=== PATIENT | female | born 1955 | race Caucasian/White ===

== ENCOUNTER 2022-12-22 09:25 | Day surgery (SDC) | payer MEDICARE, OTHER, SELFPAY ==
--- NOTE | 2022-12-21 10:20 | HO.ANESPROP2 ---
Documented by User: Frannie Painter NP 12/21/22 10:20 HPI - Anesthesia Eval Consult details Narrative: 67yo F for Colonoscopy FORMERLY [facility], [facility] Past Medical History Medical History Osteoarthritis Surgical History Surgical History History of back surgery Hx of colonoscopy Social History Social History Patient Tobacco Use Status: Never used Tobacco Use of substances other than those prescribed or required for medical reasons: No Are you DNR?: No Advance Directives: No Advance Directives Information Provided: Yes Meds Allergies Allergy/AdvReac Type Severity Reaction Status Date / Time No Known Allergies Allergy Verified 12/22/22 10:23 Home Medications Medication Instructions Recorded Confirmed Last Taken Type Osteo Bi-Flex PO 12/21/22 Unknown History acetaminophen 325 mg tablet 650 mg PO Q4H PRN Pain 12/21/22 12/21/22 Unknown History (Tylenol) celecoxib 200 mg capsule 200 mg PO DAILY PRN pain 12/21/22 12/21/22 12/14/22 History glucosamin 375 mg-chond 300 1 cap PO DAILY 12/21/22 12/21/22 Unknown History mg-collagen 50 mg-hyaluronic acid 2 mg cap ibuprofen 200 mg tablet (Motrin IB) 200 mg PO Q8H PRN Pain 12/21/22 12/21/22 12/14/22 History magnesium 300 tab PO DAILY 12/21/22 12/21/22 Unknown History Exam Exam Date and Time: December 21, 2022 1020 Assessment and Plan Assessment Anesthesia Assessment: Chart Reviewed Documented by User: Radha Huff MD 12/22/22 11:13 FOR[facility]LY [facility], [facility] Past Medical History Medical History Osteoarthritis Family History Family history of problems with anesthesia: No Surgical History Surgical History History of back surgery Hx of colonoscopy History of Problems with Anesthesia: No Social History Social History Patient Tobacco Use Status: Never used Tobacco Use of substances other than those prescribed or required for medical reasons: No Are you DNR?: No Advance Directives: No Advance Directives Information Provided: Yes Meds Allergies Allergy/AdvReac Type Severity Reaction Status Date / Time No Known Allergies Allergy Verified 12/22/22 10:23 Home Medications Medication Instructions Recorded Confirmed Last Taken Type Osteo Bi-Flex PO 12/21/22 Unknown History acetaminophen 325 mg tablet 650 mg PO Q4H PRN Pain 12/21/22 12/21/22 Unknown History (Tylenol) celecoxib 200 mg capsule 200 mg PO DAILY PRN pain 12/21/22 12/21/22 12/14/22 History glucosamin 375 mg-chond 300 1 cap PO DAILY 12/21/22 12/21/22 Unknown History mg-collagen 50 mg-hyaluronic acid 2 mg cap ibuprofen 200 mg tablet (Motrin IB) 200 mg PO Q8H PRN Pain 12/21/22 12/21/22 12/14/22 History magnesium 300 tab PO DAILY 12/21/22 12/21/22 Unknown History Exam Airway Mallampati Class: II TM Dist: >3cm Neck ROM: Full Heart: rrr Lungs: cta Assessment and Plan Assessment Anesthesia Assessment: Anesthesia Plan Discussed Final Anesthetic Review Family History of Problems with Anesthesia: No History of Problems with Anesthesia: No NPO: Yes ASA Class: II Final Preanesthetic Review: No Changes in Pt Med Stat, Meds/Allgs Chart Reviewed, Consent Obtained/Reviewed and Anes Risks/Benef Reviewed Patient Risk: Low Procedure Risk: Low Anesthetic Plan Anesthetic Plan: MAC: Disposition: Standard PACU
[2022-12-22 10:23] VITALS: BMI 34.9
[2022-12-22 10:42] VITALS: BP 124/70; PULSE 70; RESP 15; TEMP 36.7; O2SAT 97
[2022-12-22] MEDS: Lactated Ringers 1,000 ML 100 ML IVCONT (10:49)
--- NOTE | 2022-12-22 11:14 | P.HPSUR_ITS ---
Pre-Procedural Eval Section A Date of Service: 12/22/22 Section B Chief Complaint: Encounter for screening for malignant neoplasm of Details of Present Illness: see H&P no changes Relevant Family History (Specify if Yes): Yes Relevant Social History: None Present Medications: see Short Stay Collaborative assessment Medical History: No relevant PMH History of Previous Operations: No relevant previous surgery Allergies: Allergies Allergy/AdvReac Type Severity Reaction Status Date / Time No Known Allergies Allergy Verified 12/22/22 10:23 Review of Systems Sugical H&P ROS: Negative: Constitution, Cardiovascular, Respiratory, Neurol ogical, Psychiatric, Hem-Onc, Allergic/Immunologic, Gastrointestinal, Genitourinary, Musculoskeletal, Integumentary, Endocrine and Eyes/Ears/Nose/Throat Exam Surgical H&P Exam: Normal: HEENT, Normal: Heart, Normal: Lungs, Normal: Extremities, Normal: Abdomen, Normal: Skin and Normal: Neurological Plan Diagnosis/Plan: Unchanged I have reviewed the history and physical and performed a pertinent physical examination on my patient. No changes have occurred unless specified. Time Spent With Patient Time: Total time managing care of this patient today ____ minutes.
--- NOTE | 2022-12-22 11:43 | PM.OP ---
Brief Operative Note Date of Service: 12/22/22 Pre-op diagnosis: screening Post-op diagnosis: same Surgeon: Kike Russell Anesthesia: MAC Was an Fisher Line used for this Procedure?: No Estimated blood loss (mL): 2 Pathology: other Condition: stable Disposition: PACU
[2022-12-22 11:50] VITALS: BP 90/51; PULSE 71; RESP 17; TEMP 36.4; O2SAT 97
--- NOTE | 2022-12-22 11:59 | PC.NURSE ---
as per md. Zazueta finish iv fluids
[2022-12-22 12:05] VITALS: BP 110/77; PULSE 69; RESP 17; TEMP 36.3; O2SAT 100
--- NOTE | 2022-12-22 12:54 | OP_ITS ---
DATE OF SERVICE: 12/22/2022 SURGEON: Kike Russell MD INDICATIONS: Colon cancer screening and family history of colon cancer. PREOPERATIVE DIAGNOSIS: POSTOPERATIVE DIAGNOSIS: PROCEDURE PERFORMED: Colonoscopy to the terminal ileum with snare polypectomy. ESTIMATED BLOOD LOSS: COMPLICATIONS: ANESTHESIA: Monitored anesthesia care. ASSISTANTS: SPECIMENS: DESCRIPTION OF PROCEDURE: A history and physical were performed. The risks and benefits of the procedure were explained to the patient. Informed consent was obtained. The patient was placed in left lateral decubitus position. A digital rectal exam was performed and was found to be normal. The Olympus pediatric video colonoscope was introduced into the rectum and advanced to the cecum. The cecum was identified by transillumination, palpation, and identification of ileocecal valve. Examination was performed, and the scope was removed. She tolerated the procedure well and was returned to recovery area in stable condition. FINDINGS: The terminal ileum was examined and appeared normal. The visualized colonic mucosa was normal. The quality of the prep was good. In the right colon was a 6 mm polyp, which was removed with a cold snare and recovered via suction. No other polyps were identified. There was minimal sigmoid diverticulosis. Retroflexed examination showed some moderate-sized internal hemorrhoids. IMPRESSION: Colon polyp. RECOMMENDATIONS: 1. Follow up the biopsy results. 2. Repeat colonoscopy in 5 years because of family history. MD GORAN Gracia/JONATHAN / [id number]
== END 2022-12-22 12:59 | disposition home or self-care (01) ==
PROVIDERS: PCP Internal Medicine Geriatric Medicine; Visit Provider Internal Medicine Gastroenterology
PROC: 0DJD8ZZ Inspection of Lower Intestinal Tract, Via Natural or Artificial Opening Endoscopic (ICD-10-PCS; CPT 45378; principal; 2022-12-22 10:40)
DX: Z12.11 Encounter for screening for malignant neoplasm of colon (principal); Z80.0 Family history of malignant neoplasm of digestive organs; Z86.010 Personal history of colon polyps; D12.2 Benign neoplasm of ascending colon; K57.30 Diverticulosis of large intestine without perforation or abscess without bleeding; K64.8 Other hemorrhoids; M16.0 Bilateral primary osteoarthritis of hip; Z79.899 Other long term (current) drug therapy; Z98.890 Other specified postprocedural states
CPT/HCPCS: 45385; 88305